=== PATIENT | male | born 1980 | race African-American/Black ===

== ENCOUNTER 2016-12-10 11:44 | Emergency (ER) | payer SELFPAY ==
[~2016-12-10] VITALS: Ht 172.7 cm; Wt 74.8 kg
[~2016-12-10 11:44] MED LIST: AZIT250T6 PO; BENZ100C PO; PRED50TA PO; PROAIR HFA8.5 GM INH
[2016-12-10 12:00] VITALS: BP 136/81
--- NOTE | 2016-12-10 12:59 | RAD ---
PA and lateral chest radiographs 12/10/2016. Clinical History: Cough and chest pain.. PA and lateral digital radiographs of the chest were obtained. No previous studies are available for comparison. The cardiac and mediastinal silhouettes are within normal limits in size and configuration. No pulmonary infiltrate is seen. No pleural effusion or pneumothorax is noted. The osseous structures are grossly intact. Impression: No radiographic evidence of active cardiopulmonary disease.
--- NOTE | 2016-12-10 13:32 | EKG ---
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
--- NOTE | 2016-12-10 13:34 | PHYS DOC ---
Past Medical History Past Medical History: No Pertinent History Past Surgical History: Appendectomy Alcohol Use: Occasionally Drug Use: Cocaine, Marijuana Adult General Chief Complaint Chief Complaint: COUGH [facility] HPI Patient is a 36 year old male who presents with productive cough for 2 weeks. He also reports nasal congestion. Yesterday he began to notice left-sided chest pain that radiated to the left arm. The pain was worse with his cough. He denies fever, shortness of breath, sore throat, or ear pain. He admits to smoking crack, last used a few days ago. He does not have a PCP. Review of Systems Review of Systems Constitutional: Denies fever or chills. [] Eyes: Denies change in visual acuity, redness, or eye pain. [] HENT: Denies ear pain or sore throat. Reports nasal congestion. Respiratory: Denies shortness of breath. Reports productive cough. Cardiovascular: Denies palpitations or edema. Reports chest pain. GI: Denies abdominal pain, nausea, vomiting, bloody stools or diarrhea. [] : Denies dysuria, hematuria or urinary frequency. [] Musculoskeletal: Denies back pain or joint pain. [] Integument: Denies rash or skin lesions. [] Neurologic: Denies headache, focal weakness or sensory changes. [] Endocrine: Denies polyuria or polydipsia. [] Psych: Denies anxiety or depression. [] All systems reviewed and negative unless otherwise stated in the HPI. Allergies Allergies Allergies Coded Allergies Type Severity Reaction Last Updated Verified No Known Drug Allergies 08/24/15 No Physical Exam Physical Exam Constitutional: Well developed, well nourished, no acute distress, non-toxic appearance. [] HENT: Normocephalic, atraumatic, bilateral external ears normal, oropharynx moist, no oral exudates, nose normal. Bilateral TMs without erythema or bulging. There is no posterior pharyngeal erythema or tonsillar edema. Bilateral nasal turbinates are significantly swollen and erythematous with purulent drainage. Eyes: PERRLA, EOMI, conjunctiva normal, no discharge. [] Neck: Normal range of motion, no tenderness, supple, no stridor. [] Cardiovascular: Heart rate regular rhythm, no murmur [] Lungs & Thorax: Bilateral breath sounds clear to auscultation without wheezes, rales, or rhonchi. Skin: Warm, dry, no erythema, no rash. [] Neurologic: Alert and oriented X 3, normal motor function, normal sensory function, no focal deficits noted. [] Psychologic: Affect normal, judgement normal, mood normal. [] Current Patient Data Vital Signs Vital Signs Date Time Temp Pulse Resp B/P Pulse Ox O2 Delivery O2 Flow Rate FiO2 12/10/16 12:00 97.7 85 18 100 Room Air 97.7 EKG EKG EKG at 1214. Heart rate 67 bpm. Sinus rhythm without acute ischemic changes or STEMI, as interpreted by Dr. Dunbar. Radiology/Procedures Radiology/Procedures REASON: cough, chest pain PROCEDURE: CHEST PA & LATERAL PA and lateral chest radiographs 12/10/2016. Clinical History: Cough and chest pain.. PA and lateral digital radiographs of the chest were obtained. No previous studies are available for comparison. The cardiac and mediastinal silhouettes are within normal limits in size and configuration. No pulmonary infiltrate is seen. No pleural effusion or pneumothorax is noted. The osseous structures are grossly intact. Impression: No radiographic evidence of active cardiopulmonary disease. Course & Med Decision Making Course & Med Decision Making Pertinent Labs and Imaging studies reviewed. (See chart for details) Patient with history of cocaine use presents with cough and nasal congestion for 2 weeks with chest pain that started yesterday. On exam, his lungs are clear and heart rate and rhythm are regular. EKG shows a normal sinus rhythm. Chest x-ray does not show any focal infiltrates. I-STAT troponin is negative. He is discharged home with prescription for albuterol inhaler and prednisone. Return precautions were discussed. He verbalizes understanding and agrees with plan. Dragon Disclaimer Dragon Disclaimer This electronic medical record was generated, in whole or in part, using a voice recognition dictation system. Departure Departure Impression: Primary Impression: Bronchitis Disposition: HOME, SELF-CARE Condition: STABLE Referrals: NO PCP (PCP) Patient Instructions: Acute Bronchitis, [id number] Additional Instructions: Your EKG, chest xray, and labs were normal today. You appear to have bronchitis, which is a viral infection. Antibiotics do not help to treat viruses. Please complete all of the prescribed steroids, even if you are feeling better. Please use the prescribed inhaler as needed for cough or shortness of breath. Do not use more often than directed. Please follow up with a primary care provider within the next week. Return to the emergency department if you have any new or concerning symptoms. Scripts Albuterol Sulfate (Proair Hfa Inhaler)8.5 Gm [id number] Puff INH Q4HRS PRN SHORTNESS OF BREATH #1 INHALER Prov:SWEETIE LANDAVERDE 12/10/16 Prednisone 20 Mg [id number] Mg PO DAILY 5 Days Prov:SWEETIE LANDAVERDE 12/10/16 Benzonatate 200 Mg Capsule1 Cap PO TID #30 CAP Prov:SWEETIE LANDAVERDE 12/10/16 SWEETIE LANDAVERDE Dec 10, 2016 13:34
[2016-12-10] MEDS ORDERED: PRED20TA PO (13:48)
[2016-12-10] MEDS ORDERED: PROAIR HFA8.5 GM INH (13:48)
[2016-12-10] MEDS ORDERED: BENZ200C39 PO (13:48)
== END 2016-12-10 13:55 | disposition home or self-care (01) ==
LOC: ER 11:44
DX: J40 Bronchitis, not specified as acute or chronic (principal); F12.10 Cannabis abuse, uncomplicated; F14.10 Cocaine abuse, uncomplicated
CPT/HCPCS: 71020; 84484; 93005; 99284

== ENCOUNTER 2018-07-07 19:06 | Emergency (ER) | payer SELFPAY ==
[~2018-07-07] VITALS: Ht 172.7 cm; Wt 79.4 kg
[~2018-07-07 19:06] MED LIST changes: +BENZ200C47 PO; +PRED20TA PO
[2018-07-07 19:17] VITALS: BP 136/67
[2018-07-07] MEDS ORDERED: TRAM-48 PO (19:33)
[2018-07-07] MEDS ORDERED: CYCL10TA2 PO (19:33)
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
== END 2018-07-07 19:42 | disposition home or self-care (01) ==
LOC: ER 19:06
DX: S00.83XA Contusion of other part of head, initial encounter (principal); Z90.89 Acquired absence of other organs; S16.1XXA Strain of muscle, fascia and tendon at neck level, initial encounter; V43.62XA Car passenger injured in collision with other type car in traffic accident, initial encounter; Y93.89 Activity, other specified; Y92.410 Unspecified street and highway as the place of occurrence of the external cause; Y99.8 Other external cause status
CPT/HCPCS: 99283